=== PATIENT | female | born 1960 ===

== ENCOUNTER 2018-07-08 01:57 | Inpatient (IN) ==
[2018-07-08] MEDS ORDERED: Acetaminophen 325 MG Tablet PO PRN (04:29)
[2018-07-08] MEDS ORDERED: Aluminum/Magnesium/Simethacone Susp 30 ML UDC PO PRN (04:30)
[2018-07-08] MEDS ORDERED: Haloperidol Inj 5 MG/ML Ampul IV.PUSH PRN (10:37)
[2018-07-08] MEDS: LORazepam 1 MG Tablet PO PRN ×3 (11:09→22:18)
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
--- NOTE | 2018-07-08 18:27 | P.CONIM ---
History of Present Illness Service: [facility] Consult date: 07/08/18 Reason for Consult: Medical management Primary Care Provider: UNKNOWN Chief Complaint: right sided abdominal pain History of Present Illness: Patient is a 57-year-old woman, with a past medical history significant for hep C, history of MRSA, partial thyroidectomy, history of incarcerations, with a past psychiatric history of depression, multiple psychiatric admissions, one previous suicide attempt years ago, who presented to the ED after walking and stated she was tired of living in the context of recent cocaine intoxication and endorsing suicide ideation which patient was admitted to the inpatient psychiatry unit for further evaluation and management. From the report, it was noted that patient had been drinking all the time referring to alcohol use, having disturbed sleep, decreased energy with no change in appetite and concentration but reports feeling depressed along with paranoid ideation and suicidal ideation recently. Patient states that she had walked into the ER in [place] and was transferred here to this facility. Patient was admitted in psychiatric unit for evaluation and treatment. Medicine team was consulted for medical management. Patient seen and examined laying in bed, complaining of right-sided upper abdominal pain, worse on palpation.. Patient denies any association of nausea or vomiting. Patient denies any fever or chills, patient denies any diarrhea or constipation. Patient admitted drinking a lot every day, and stated sometimes smoking. Patient denies any use of IV drugs for a few months now. Review of Systems All other systems reviewed negative except as stated in [facility] PMFSH - History History Provided By: Patient, Medical Record - Medical History Medical History: Medical History (Last Updated 07/08/18 @ 18:25 by JIN Latham) Depression Hepatitis C History of incarceration MRSA (methicillin resistant Staphylococcus aureus) Suicidal ideation - Surgical History Surgical History: Surgical History (Last Reviewed 07/08/18 @ 18:25 by JIN Latham) H/O partial thyroidectomy - Family History Family History: Family History (Last Updated 07/08/18 @ 18:25 by JIN Latham) Other Family history unknown - Social History I have reviewed the patient's Social History: Yes - Tobacco History Second Hand Smoke Exposure: Yes Tobacco Use In Past 30 Days: Yes Smoking Status: Current every day smoker Tobacco Type: Cigarettes - Alcohol History How Often Do You Have a Drink Containing Alcohol: 4 or more times a week - Substance Use History Substance History: Active Abuse - Substance Use Type Alcohol Status: Active Route Used: By Mouth Frequency: 1-2 pints daily Reason for Use: Calm Down Comment: Patient stated she has been using ETOH "a long time". Per labratory documentation , Patient was positive for Cocaine and per ED report has history of IV drug use. Medications and Allergies Active Medications: Active Medications Acetaminophen (Tylenol) 650 mg PO Q4H PRN PRN Reason: PAIN 1-5/ TEMP> 101 Al Hydrox/Mg Hydrox/Simethicone (Mag-Al Plus Susp Liq) 30 ml PO Q6H PRN PRN Reason: DYSPEPSIA Al Hydroxide/Mg Hydroxide (Milk Of Magnesia Liq) 30 ml PO Q24H PRN PRN Reason: CONSTIPATION Clonidine HCl (Catapres) 0.1 mg PO BID [facility] Last Admin: 07/08/18 08:36 Dose: 0.1 mg Diphenhydramine HCl (Benadryl) 50 mg PO HS PRN PRN Reason: INSOMNIA Diphenhydramine HCl (Benadryl Inj) 50 mg IM HS PRN PRN Reason: INSOMNIA Duloxetine HCl (Cymbalta) 30 mg PO DAILY [facility] Last Admin: 07/08/18 11:09 Dose: 30 mg Flumazenil (Romazecon Inj) 0.2 mg IV.PUSH Q1M PRN PRN Reason: OVERSEDATION Haloperidol Lactate (Haldol Inj) 1 mg IV.PUSH Q15M PRN PRN Reason: for severe agitation Hydroxyzine HCl (Atarax) 50 mg PO Q6H PRN PRN Reason: ANXIETY Lorazepam (Ativan) 1 mg PO Q4H PRN PRN Reason: for CIWA 8-10 Last Admin: 07/08/18 16:13 Dose: 1 mg Lorazepam (Ativan) 2 mg PO Q2H PRN PRN Reason: for CIWA 11-14 Lorazepam (Ativan Inj) 2 mg IV.PUSH Q2H PRN PRN Reason: for CIWA 11-14 Lorazepam (Ativan Inj) 2 mg IV.PUSH Q1H PRN PRN Reason: for CIWA 15-20 Lorazepam (Ativan Inj) 2 mg IV.PUSH Q15M PRN PRN Reason: for CIWA > 20 Lorazepam (Ativan Inj) 1 mg IV.PUSH Q4H PRN PRN Reason: for CIWA 8-10 Miscellaneous Information ([facility] Information) 0 each OTHER HS GANESH Nicotine (Habitrol 21 Mg Patch.24 Hr) 1 patch T-DERMAL DAILY [facility] Last Admin: 07/08/18 09:28 Dose: Not Given Allergies Allergy/AdvReac Type Severity Reaction Status Date / Time haloperidol [From Haldol] Allergy Severe muscle Verified 07/08/18 04:28 rigidity Penicillins Allergy Severe Swelling Verified 07/08/18 04:28 of Lip/Tongue/Throat Sulfa (Sulfonamide Allergy Severe Swelling Verified 07/08/18 04:28 Antibiotics) of Lip/Tongue/Throat Home Medications Medication Instructions Recorded Confirmed Type clonidine HCl 0.1 mg PO BID 07/08/18 07/08/18 History duloxetine [Cymbalta] 30 mg PO DAILY 07/08/18 07/08/18 History Exam Vital signs: Vital Signs 07/08/18 04:28 Temperature 97.9 F Pulse Rate 63 Respiratory Rate 17 Blood Pressure 143/82 H Pulse Oximetry 98 Intake & Output 07/07/18 07/08/18 07/08/18 18:59 06:59 18:59 Weight 84.4 kg Other: Weight On Admission 84.4 kg Narrative: GENERAL: Well-developed, well-nourished, obese female, alert and oriented x3 in no apparent distress SKIN: Warm and dry. HEAD: Atraumatic. Normocephalic. EYES: Pupils equal and round. No scleral icterus. No injection or drainage. ENT: No nasal bleeding or discharge. Mucous membranes pink and moist. NECK: Trachea midline. No JVD. CARDIOVASCULAR: Regular rate and rhythm. RESPIRATORY: No accessory muscle use. Clear to auscultation. Breath sounds equal bilaterally. GASTROINTESTINAL: Abdomen obese soft, slight right upper abdominal tenderness, nondistended. Hepatic margins palpable and splenic margins not palpable. MUSCULOSKELETAL: Extremities without clubbing, cyanosis, or edema. No obvious deformities. NEUROLOGICAL: Awake and alert. No obvious cranial nerve deficits. Motor grossly within normal limits. Five out of 5 muscle strength in the arms and legs. Normal speech. PSYCHIATRIC: Appropriate mood and affect; insight and judgment unreliable. Assessment and Plan - Assessment (1) Hepatitis C Code(s): B19.20 - Unspecified viral hepatitis C without hepatic coma Status: Acute (2) MRSA (methicillin resistant staph aureus) culture positive Code(s): Z22.322 - Carrier or suspected carrier of Methicillin resistant Staphylococcus aureus Status: Acute (3) GERD (gastroesophageal reflux disease) Code(s): K21.9 - Gastro-esophageal reflux disease without esophagitis Status: Acute (4) Adjustment disorder with depressed mood Code(s): F43.21 - Adjustment disorder with depressed mood Status: Acute - Plan Patient is a 57-year-old woman, with a past medical history significant for hep C, history of MRSA, partial thyroidectomy, history of incarcerations, with a past psychiatric history of depression, multiple psychiatric admissions, one previous suicide attempt years ago, who presented to the ED after walking and stated she was tired of living in the context of recent cocaine intoxication and endorsing suicide ideation which patient was admitted to the inpatient psychiatry unit for further evaluation and management. Abdominal pain/ hx Hepatitis C Unspecified viral hepatitis C without hepatic coma -right upper abdominal pain -check liver function profile, CBC, BMP HX MRSA (methicillin resistant staph aureus) culture positive Carrier or suspected carrier of Methicillin resistant Staphylococcus aureus -no current signs and symptoms of infection GERD (gastroesophageal reflux disease) Gastro-esophageal reflux disease without esophagitis, Acute -start on ppi -monitor signs and symptoms Hx Partial Thyroidectomy -monitor tsh, free T4 -monitor signs and symptoms Adjustment disorder with depressed mood Adjustment disorder with depressed mood, acute -Management by Psychiatric Team Alcohol dependence/Alcohol use Disorder -CIWA protocol -counseling given -continue ativan -monitor for withdrawal symptoms DVT Proph: Patient ambulatory Code Status: full code Discussed Condition With: patient and nurse
[2018-07-08] MEDS: REMOVE OTHER SCH (22:09)
[2018-07-09] MEDS: LORazepam 1 MG Tablet PO PRN ×3 (08:41→21:23)
[2018-07-09 09:53] LABS: Baso % (Auto) 0.3 % (0.0-2.0); Eos # (Auto) 0.1 th/mm3 (0.0-0.4); Eos % (Auto) 1.6 % (0.0-4.0); Hematocrit 44.8 % (35.0-46.0); Hemoglobin 14.6 gm/dL (11.6-15.3); Lymph # (Auto) 0.9 th/mm3 (1.0-4.8); Lymph % (Auto) 24.7 % (9.0-44.0); Mean Corpuscular HGB Conc 32.7 % (32.0-36.0); Mean Corpuscular Hemoglobin 35.9 pg (27.0-34.0); Mean Corpuscular Volume 109.9 fL (80.0-100.0); Mean Platelet Volume 7.8 fL (7.0-11.0); Mono # (Auto) 0.2 th/mm3 (0.0-0.9); Neut # (Auto) 2.3 th/mm3 (1.8-7.7); Neut % (Auto) 66.4 % (16.0-70.0); Platelet Count 119 th/mm3 (150-450); Red Blood Count 4.08 mil/mm3 (4.00-5.30); Red Cell Distribution Width 14.2 % (11.6-17.2); White Blood Count 3.5 th/mm3 (4.0-11.0)
[2018-07-09 10:03] LABS: Albumin 2.8 g/dL (3.4-5.0); Anion Gap 8 meq/L (5-15); Aspartate Aminotransferase 22 U/L (15-37); Blood Urea Nitrogen 16 mg/dL (7-18); Calcium 8.9 mg/dL (8.5-10.1); Carbon Dioxide 21.5 meq/L (21.0-32.0); Chloride 107 meq/L (98-107); Glomerular Filtration Rate 85 mL/min (>89); Glucose,Random 76 mg/dL (74-106); Potassium 4.4 meq/L (3.5-5.1); Sodium 136 meq/L (136-145)
[2018-07-09 10:11] LABS: Alanine Aminotransferase 21 U/L (10-53); Alkaline Phosphatase 126 U/L (45-117); Free T4 (Free Thyroxine) 0.99 ng/dL (0.76-1.46); Total Protein 7.2 g/dL (6.4-8.2)
--- NOTE | 2018-07-09 15:35 | P.PNPSY ---
Subjective Remarks: Reviewed electronic medical records and discussed case with staff. Follow-up was conducted in the dayroom with nurse present.Patient endorses that she is feeling better and that she is shaking less. CHRISTOS was at 8 today. She feels that she is sleeping alot. She is complaining to right sided pain that is chronic and requesting tylenol. He states she stills feels sad, but that it getting better. Denies any suicidal ideations. Review of Systems All other systems reviewed negative except as stated in HPI Mental Status Examination Appearance: Dirty, Disheveled Consciousness: Alert Orientation: Person, Place, Date/Time Motor Activity: Normal gait Speech: Unremarkable Language: Adequate Fund of Knowledge: Inadequate Attention and Concentration: Adequate Memory: Impaired Affect: Labile Thought Process & Associations: Disorganized (At times) Thought Content: Preoccupations (Wanting rehabilitation program) Hallucination Type: None Delusion Type: None Suicidal Ideation: No Suicidal Plan: No Suicidal Intention: No Homicidal Ideation: No Homicidal Plan: No Homicidal Intention: No Insight: Fair Judgment: Impulsive Assessment and Plan - Assessment (1) Adjustment disorder with depressed mood Code(s): F43.21 - Adjustment disorder with depressed mood Status: Acute - Plan Plan: Estimated LOS: [] days Continue current treatment plan, Patient will be seen by psychiatrist on Tuesday. . Justification for Continued Inpatient Stay: Moving patient to a less restrictive environment may result in her decompensation.
[2018-07-09 16:00] LABS: Bilirubin,Urine Negative (Negative); Clarity,Urine Clear (Clear); Color,Urine Straw (Yellw/Straw); Glucose,Urine (UA) Negative (Negative); Leukocyte Esterase,Urine Negative (Negative); Nitrite,Urine Negative (Negative); Specific Gravity,Urine 1.008 (1.002-1.035)
--- NOTE | 2018-07-09 17:37 | P.PNIM ---
Subjective Interval history: Patient is a 57-year-old woman, with a past medical history significant for hep C, history of MRSA, partial thyroidectomy, history of incarcerations. Patient seen and examined, lying in bed, complaints of pain on right abdomen, patient stated she had offered a liver transplant when she was younger, but she refuses. Patient stated she started to be a drinker since 10 years old. Patient denies any nausea or vomiting, denies any headache or dizziness, denies any fever or chills. Physical Exam Vital signs: Vital Signs 07/09/18 06:01 07/09/18 17:31 Temperature 97.8 F 98.1 F Pulse Rate 68 62 Respiratory Rate 16 18 Blood Pressure 117/69 107/60 Pulse Oximetry 97 93 L Narrative: GENERAL: Well-developed, well-nourished, obese female, alert and oriented x3 in no apparent distress SKIN: Warm and dry. HEAD: Atraumatic. Normocephalic. EYES: Pupils equal and round. No scleral icterus. No injection or drainage. ENT: No nasal bleeding or discharge. Mucous membranes pink and moist. NECK: Trachea midline. No JVD. CARDIOVASCULAR: Regular rate and rhythm. RESPIRATORY: No accessory muscle use. Clear to auscultation. Breath sounds equal bilaterally. GASTROINTESTINAL: Abdomen obese soft, slight right upper abdominal tenderness, nondistended. Hepatic margins palpable and splenic margins not palpable. MUSCULOSKELETAL: Extremities without clubbing, cyanosis, or edema. No obvious deformities. NEUROLOGICAL: Awake and alert. No obvious cranial nerve deficits. Motor grossly within normal limits. Five out of 5 muscle strength in the arms and legs. Normal speech. PSYCHIATRIC: Appropriate mood and affect; insight and judgment unreliable. Results - Labs CBC & Chem 7: 07/09/18 09:00 07/09/18 09:00 Laboratory Results - last 24 hr 07/09/18 07/09/18 07/09/18 09:00 09:00 13:35 WBC 3.5 L RBC 4.08 Hgb 14.6 Hct 44.8 MCV 109.9 H MCH 35.9 H MCHC 32.7 RDW 14.2 Plt Count 119 L MPV 7.8 Neut % (Auto) 66.4 Lymph % (Auto) 24.7 [place] % (Auto) 7.0 Eos % (Auto) 1.6 Baso % (Auto) 0.3 Neut # (Auto) 2.3 Lymph # (Auto) 0.9 L [place] # (Auto) 0.2 Eos # (Auto) 0.1 Baso # (Auto) 0.0 WBC Differential . Differential Comment Auto diff final Sodium 136 Potassium 4.4 Chloride 107 Carbon Dioxide 21.5 Anion Gap 8 BUN 16 Creatinine 0.71 Estimated GFR 85 L Random Glucose 76 Calcium 8.9 Total Bilirubin 0.3 AST 22 ALT 21 Alkaline Phosphatase 126 H Total Protein 7.2 Albumin 2.8 L TSH 0.610 Free T4 0.99 Urine Color Straw Urine Clarity Clear Urine pH 7.0 Ur Specific Hood 1.008 Urine Protein Negative Urine Glucose (UA) Negative Urine Ketones Negative Urine Occult Blood Negative Urine Nitrate Negative Urine Bilirubin Negative Urine Urobilinogen Less than 2 Ur Leukocyte Esterase Negative Urine RBC Less than 1 Urine WBC 1 Micro UA Comment Culture not ind Ur Microscopic Review Not Reportable Urine Culture Comments Culture not ind Assessment and Plan - Assessment (1) Hepatitis C Code(s): B19.20 - Unspecified viral hepatitis C without hepatic coma Status: Acute (2) MRSA (methicillin resistant staph aureus) culture positive Code(s): Z22.322 - Carrier or suspected carrier of Methicillin resistant Staphylococcus aureus Status: Acute (3) GERD (gastroesophageal reflux disease) Code(s): K21.9 - Gastro-esophageal reflux disease without esophagitis Status: Acute (4) Adjustment disorder with depressed mood Code(s): F43.21 - Adjustment disorder with depressed mood Status: Acute - Plan Patient is a 57-year-old woman, with a past medical history significant for hep C, history of MRSA, partial thyroidectomy, history of incarcerations, with a past psychiatric history of depression, multiple psychiatric admissions, one previous suicide attempt years ago, who presented to the ED after walking and stated she was tired of living in the context of recent cocaine intoxication and endorsing suicide ideation which patient was admitted to the inpatient psychiatry unit for further evaluation and management. Abdominal pain/ hx Hepatitis C Unspecified viral hepatitis C without hepatic coma -right upper abdominal pain -alkaline Phosphatase elevated -check CK, INR -prn pain medication HX MRSA (methicillin resistant staph aureus) culture positive Carrier or suspected carrier of Methicillin resistant Staphylococcus aureus -no current signs and symptoms of infection GERD (gastroesophageal reflux disease) Gastro-esophageal reflux disease without esophagitis, Acute -start on ppi -monitor signs and symptoms Hx Partial Thyroidectomy -monitor tsh, free T4 -monitor signs and symptoms Adjustment disorder with depressed mood Adjustment disorder with depressed mood, acute -Management by Psychiatric Team Alcohol dependence/Alcohol use Disorder -CIWA protocol -counseling given -continue ativan -monitor for withdrawal symptoms DVT Proph: Patient ambulatory Code Status: full code Discussed Condition With: patient and nurse
[2018-07-10] MEDS: REMOVE OTHER SCH (01:09)
[2018-07-10] MEDS: LORazepam 1 MG Tablet PO PRN ×2 (04:52→09:39)
[2018-07-10 08:48] LABS: Baso % (Auto) 0.3 % (0.0-2.0); Eos # (Auto) 0.1 th/mm3 (0.0-0.4); Eos % (Auto) 1.8 % (0.0-4.0); Hematocrit 44.6 % (35.0-46.0); Hemoglobin 15.1 gm/dL (11.6-15.3); Lymph # (Auto) 1.3 th/mm3 (1.0-4.8); Lymph % (Auto) 32.4 % (9.0-44.0); Mean Corpuscular Hemoglobin 36.4 pg (27.0-34.0); Mean Platelet Volume 7.4 fL (7.0-11.0); Mono # (Auto) 0.2 th/mm3 (0.0-0.9); Mono % (Auto) 5.4 % (0.0-8.0); Neut # (Auto) 2.5 th/mm3 (1.8-7.7); Neut % (Auto) 60.1 % (16.0-70.0); Platelet Count 138 th/mm3 (150-450); Red Blood Count 4.17 mil/mm3 (4.00-5.30); White Blood Count 4.1 th/mm3 (4.0-11.0)
[2018-07-10 09:16] LABS: Calcium 9.1 mg/dL (8.5-10.1); Carbon Dioxide 24.9 meq/L (21.0-32.0)
[2018-07-10] MEDS ORDERED: LORazepam 1 MG Tablet PO PRN (13:37)
--- NOTE | 2018-07-10 13:43 | P.PNPSY ---
Subjective Remarks: Patient seen in her room with nurse Montague and medical student at [facility], chart reviewed, patient compliant medications. Patient has been given 1 mg Ativan 3 x / 3 times on 07/09 twice on 07/10. Considering patient's significant drug abuse history I will adjust the [facility] protocol. I will discontinue all the 2 mg Ativan orders. We will extend the 1 mg p.o. order to every 6 hours from every 4 hours. Patient denied suicidality at this time but is vague about the possibility of an attempt sometime in the future. She seems to be wanting to find a long-term inpatient rehab program. It appears she is failed multiple times in the past he has been a traveler across the country in various cities. Along with the long-term addictions to multiple drugs. She states she is also had 7 incarcerations while in [place]. And just recently arrived here after taking a bus from [place] to [place] with trying to stand for it and then here. She is unable to give a good reason why she was using cocaine this recently. We did discuss options with her including sober living facilities perhaps [facility] in [place]. I did talk to him counselor Scott who will pass these information on to the patient. Otherwise for now continue treatment Review of Systems All other systems reviewed negative except as stated in HPI Mental Status Examination Appearance: Appropriate, Disheveled Consciousness: Alert Orientation: Person, Place, Date/Time Motor Activity: Normal gait Speech: Unremarkable Language: Adequate Fund of Knowledge: Adequate Attention and Concentration: Adequate Memory: Impaired Mood: Other (Euthymic to somewhat restricted) Affect: Other (Slight decreased range and intensity) Thought Process & Associations: Disorganized (At times) Thought Content: Preoccupations (Wanting rehabilitation program) Hallucination Type: None Delusion Type: None Suicidal Ideation: No Suicidal Plan: No Suicidal Intention: No Homicidal Ideation: No Homicidal Plan: No Homicidal Intention: No Insight: Fair Judgment: Impulsive Assessment and Plan - Assessment (1) Adjustment disorder with depressed mood Code(s): F43.21 - Adjustment disorder with depressed mood Status: Acute - Plan Plan: Patient remains somewhat depressed but also there is a degree of manipulation noted considering her wandering the country and her homelessness. She did say she wanted to rehab program she knows this is not available this easily and [facility] though she is willing now to work with the sober living solution Justification for Continued Inpatient Stay: I have tapered down the Discharge Planning: To be determined Request Healthcare Surrogate/Guardian Advocate?: No
--- NOTE | 2018-07-10 16:49 | P.PN ---
Subjective Interval history: Follow-up for medical management, history hep C, right upper quadrant pain. Patient seen and examined, patient crying. She is feeling down. Complains of right upper quadrant pain, indicates that this has been ongoing for several months, has had a workup before. States pain is 8. Occasionally the pain is mid abdomen, has prior history of umbilical hernia. History hep C, was treated with Harvoni. Has not had follow-up 2014. Continues to drink alcohol. Has history of EGD and colonoscopy 1 year ago, was found with polyps, hiatal hernia. Was taking Protonix. Has occasional heartburn. Has been feeling nauseous, poor appetite. Prior history of cholecystectomy. Physical Exam Vital signs: Vital Signs 07/09/18 17:31 07/10/18 05:46 07/10/18 08:45 Temperature 98.1 F 98.1 F 98.4 F Pulse Rate 62 53 L 66 Respiratory Rate 18 16 17 Blood Pressure 107/60 108/60 123/66 Pulse Oximetry 93 L 96 97 Narrative: GENERAL: Well-developed, well-nourished, obese female, crying. SKIN: Warm and dry. HEAD: Atraumatic. Normocephalic. EYES: Pupils equal and round. No scleral icterus. No injection or drainage. ENT: No nasal bleeding or discharge. Mucous membranes pink and moist. NECK: Trachea midline. No JVD. CARDIOVASCULAR: Regular rate and rhythm. RESPIRATORY: No accessory muscle use. Clear to auscultation. Breath sounds equal bilaterally. GASTROINTESTINAL: Abdomen obese soft, right upper abdominal tenderness, nondistended. Hepatic margins palpable and splenic margins not palpable. MUSCULOSKELETAL: Extremities without clubbing, cyanosis, or edema. No obvious deformities. NEUROLOGICAL: Awake and alert. No obvious cranial nerve deficits. Motor grossly within normal limits. Five out of 5 muscle strength in the arms and legs. Normal speech. PSYCHIATRIC: Tearful. Results - Labs CBC & Chem 7: 07/10/18 08:07 07/10/18 08:07 Laboratory Results - last 24 hr 07/10/18 07/10/18 07/10/18 08:07 08:07 08:07 WBC 4.1 RBC 4.17 Hgb 15.1 Hct 44.6 MCV 107.0 H MCH 36.4 H MCHC 34.0 RDW 14.0 Plt Count 138 L MPV 7.4 Neut % (Auto) 60.1 Lymph % (Auto) 32.4 [place] % (Auto) 5.4 Eos % (Auto) 1.8 Baso % (Auto) 0.3 Neut # (Auto) 2.5 Lymph # (Auto) 1.3 [place] # (Auto) 0.2 Eos # (Auto) 0.1 Baso # (Auto) 0.0 WBC Differential . Differential Comment Auto diff final PT 10.0 INR 1.0 Sodium 139 Potassium 4.0 Chloride 104 Carbon Dioxide 24.9 Anion Gap 10 BUN 17 Creatinine 0.77 Estimated GFR 78 L Random Glucose 95 Calcium 9.1 Assessment and Plan - Assessment (1) Hepatitis C Code(s): B19.20 - Unspecified viral hepatitis C without hepatic coma Status: Acute (2) MRSA (methicillin resistant staph aureus) culture positive Code(s): Z22.322 - Carrier or suspected carrier of Methicillin resistant Staphylococcus aureus Status: Acute (3) GERD (gastroesophageal reflux disease) Code(s): K21.9 - Gastro-esophageal reflux disease without esophagitis Status: Acute (4) Adjustment disorder with depressed mood Code(s): F43.21 - Adjustment disorder with depressed mood Status: Acute - Plan - Plan Patient is a 57-year-old woman, with a past medical history significant for hep C, history of MRSA, partial thyroidectomy, history of incarcerations, with a past psychiatric history of depression, multiple psychiatric admissions, one previous suicide attempt years ago, who presented to the ED after walking and stated she was tired of living in the context of recent cocaine intoxication and endorsing suicide ideation which patient was admitted to the inpatient psychiatry unit for further evaluation and management. Right upper quadrant pain History of hepatitis C, treated with Harvoni Hx of cholecystectomy -alkaline Phosphatase elevated, AST, ALT normal. INR okay. No coagulopathy Can have Tylenol 650 every 8 as needed. -We will check liver ultrasound -CPK pending GERD History of hiatal hernia -Protonix 40 mg p.o. History of MRSA, not active. No signs and symptoms of infection Continue to monitor History of partial thyroidectomy -monitor tsh, free T4 -monitor signs and symptoms Alcohol dependence [facility] protocol -counseling given -continue ativan -monitor for withdrawal symptoms -Add folic acid and thiamine Adjustment disorder with depressed mood Management by Psychiatric Team Tobacco abuse -Nicotine patch -Counseling done DVT Proph: Patient ambulatory Code Status: Full code Discussed Condition With: RN, pt. Discharge Planning: Per primary care team.
--- NOTE | 2018-07-10 18:58 | US ---
EXAM DATE: 07/10/2018 12:00 AM EDT AGE/SEX: 57 years / Female INDICATIONS: Abdominal pain. CLINICAL DATA: This is the patient's initial encounter. Patient reports that signs and symptoms have been present for 1 day and indicates a pain score of 2/10. MEDICAL/SURGICAL HISTORY: Hepatitis C. Depression. MRSA. Suicidal ideation. . Partial thyroide ctomy. COMPARISON: No prior exams available for comparison. MEASUREMENTS: Liver:__ 15.2 cm. Common Bile Duct:__ 1mm. Right Kidney:__ 10.7 x 5.3 x 4.5 cm. FINDINGS: Liver: Normal echotexture without focal lesion or ductal dilatation. Portal Vein: Hepatopedal flow seen in portal vein. Common Duct: No intraluminal mass or stone visualized. Gallbladder: Surgically absent. Pancreas: The visualized portions are within normal limits Right Kidney: Normal echotexture and cortical thickness. No mass or hydronephrosis. Other: None. CONCLUSION: 1. Negative abdominal sonogram. Cholecystectomy. Electronically signed by: Jason Dalton MD 07/10/2018 6:57 PM EDT
[2018-07-11] MEDS: REMOVE OTHER SCH ×2 (07:24→22:31)
[2018-07-11] MEDS: Acetaminophen 325 MG Tablet PO PRN (10:03)
[2018-07-11] MEDS: Folic Acid 1 MG Tablet PO SCH (10:04)
--- NOTE | 2018-07-11 13:32 | P.PNPSY ---
Subjective Remarks: Patient seen in her room with nurse, chart reviewed, patient compliant medications. Patient appears more alert focused today though also somewhat more manipulating. Attempted to discuss discharge plans and placement options with her she basically refused to consider an SENIOR CARE. States she has had poor results with sober living in half-way-type situations. She stated she would like to go to an inpatient rehab program. But those are not availablle on her short notice. She also states she has been in various rehabs across the country. She is vague about any suicidality voices or visions at this time. There appears to be an increased component of manipulation with this lady. We will give her our list of sober living facilities and shelters for her to attempt to find placement otherwise consider discharge within 48 hours Review of Systems All other systems reviewed negative except as stated in HPI Mental Status Examination Appearance: Appropriate, Disheveled Consciousness: Alert Orientation: Person, Place, Date/Time Motor Activity: Normal gait Speech: Unremarkable Language: Adequate Fund of Knowledge: Adequate Attention and Concentration: Adequate Memory: Impaired Mood: Other (Euthymic to somewhat restricted) Affect: Other (Slight decreased range and intensity) Thought Process & Associations: Disorganized (Improving) Thought Content: Preoccupations (Wanting rehabilitation program) Hallucination Type: None Delusion Type: None Suicidal Ideation: No Suicidal Plan: No Suicidal Intention: No Homicidal Ideation: No Homicidal Plan: No Homicidal Intention: No Insight: Fair Judgment: Impulsive Assessment and Plan - Assessment (1) Adjustment disorder with depressed mood Code(s): F43.21 - Adjustment disorder with depressed mood Status: Acute - Plan Plan: Patient is showing improvement in her focus though also appears to be some increased manifestations of perhaps a personality disorder issues. We will give patient information related to his sober living facilities and homeless resources consider discharge in 1-2 days Justification for Continued Inpatient Stay: At this time patient would decompensate a place to a lower level of care Discharge Planning: To be determined Request Healthcare Surrogate/Guardian Advocate?: No
--- NOTE | 2018-07-11 16:39 | P.PN ---
Subjective Interval history: Follow-up of patient with hep C, abdominal pain. Patient seen and examined. Patient states she continues to have constant right upper quadrant abdominal pain that is worse immediately after eating. She has a history of hep C and was previously treated with Harvoni. She denies any chest pain or shortness of breath. She denies any fever or chills. She had an EGD and colonoscopy a year ago and was told she had polyps and a hiatal hernia. She complains of nausea but no vomiting. His previous history of cholecystectomy. She denies any diarrhea or constipation. Physical Exam Vital signs: Vital Signs 07/10/18 17:44 07/11/18 06:00 Temperature 98.6 F 98.4 F Pulse Rate 85 65 Respiratory Rate 17 17 Blood Pressure 127/75 121/62 Pulse Oximetry 96 Narrative: GENERAL: Well-developed, well-nourished, obese female, INAD. Awake and alert. SKIN: Warm and dry. HEENT: Atraumatic. Normocephalic. Pupils equal and round. No scleral icterus. No injection or drainage. No nasal bleeding or discharge. Mucous membranes pink and moist. NECK: Trachea midline. CARDIOVASCULAR: Regular rate and rhythm. RESPIRATORY: No accessory muscle use. Clear to auscultation. Breath sounds equal bilaterally. GASTROINTESTINAL: Abdomen obese soft, right upper abdominal tenderness, nondistended. Hepatic margins palpable and splenic margins not palpable. MUSCULOSKELETAL: Extremities without clubbing, cyanosis, or edema. No obvious deformities. NEUROLOGICAL: Awake and alert. No obvious cranial nerve deficits. Motor grossly within normal limits. Nonfocal. Normal speech. PSYCHIATRIC: Calm and cooperative Results - Labs CBC & Chem 7: 07/10/18 08:07 07/10/18 08:07 - Imaging Impressions Liver Ultrasound 07/10/18 00:00 CONCLUSION: 1. Negative abdominal sonogram. Cholecystectomy. Assessment and Plan - Assessment (1) Hepatitis C Code(s): B19.20 - Unspecified viral hepatitis C without hepatic coma Status: Acute (2) MRSA (methicillin resistant staph aureus) culture positive Code(s): Z22.322 - Carrier or suspected carrier of Methicillin resistant Staphylococcus aureus Status: Acute (3) GERD (gastroesophageal reflux disease) Code(s): K21.9 - Gastro-esophageal reflux disease without esophagitis Status: Acute (4) Adjustment disorder with depressed mood Code(s): F43.21 - Adjustment disorder with depressed mood Status: Acute - Plan 57-year-old woman, with a past medical history significant for hep C, history of MRSA, partial thyroidectomy, history of incarcerations, with a past psychiatric history of depression, multiple psychiatric admissions, one previous suicide attempt years ago, who presented to the ED after walking and stated she was tired of living in the context of recent cocaine intoxication and endorsing suicide ideation which patient was admitted to the inpatient psychiatry unit for further evaluation and management. Right upper quadrant pain, constant, worse after meals History of hepatitis C, treated with Harvoni Hx of cholecystectomy GERD History of hiatal hernia abd US neg -Consult GI, appreciate assistance -Protonix 40 mg p.o. -trial of Bentyl -monitor History of MRSA, not active. No signs and symptoms of infection Continue to monitor History of partial thyroidectomy -thyroid studies WNL Alcohol dependence [facility] protocol -counseling given -continue ativan -monitor for withdrawal symptoms -Continue thiamine and folic acid daily Adjustment disorder with depressed mood Management by Psychiatric Team Tobacco abuse -Nicotine patch -Counseling done DVT prophylaxis -Patient is ambulatory Code Status: Full Discussed Condition With: patient, nursing staff
[2018-07-11] MEDS: Dicyclomine 10 MG Capsule PO PRN (17:50)
[2018-07-12] MEDS: Acetaminophen 325 MG Tablet PO PRN (08:11)
[2018-07-12] MEDS: Folic Acid 1 MG Tablet PO SCH (08:11)
[2018-07-12] MEDS: Dicyclomine 10 MG Capsule PO PRN (08:12)
--- NOTE | 2018-07-12 08:21 | P.CONGI ---
History of Present Illness Consult date: 07/12/18 Consult reason: Abdominal pain Chief complaint: depressive disorder History of Present Illness: This is a 57-year-old female with past medical history significant for hepatitis C from history of IV drug use status post successful treatment with Harvoni in 2014, history of MRSA, partial thyroidectomy who is currently admitted to the inpatient psychiatric unit for reports of suicidal ideation. Her service has been consulted to evaluate patient for complaints of abdominal pain. Patient reports that she has been having right upper quadrant pain for the past year, states that pain is constant throughout the day but worse after meals, unable to describe the feeling of the pain. Reports associated nausea when the pain is so severe, also reports occasional emesis. Denies any hematemesis or coffee-ground emesis. Patient reports taking a significant amount of ibuprofen to help with the abdominal pain. Also drinks from 1-2 pints of whiskey daily. Patient is also complaining of a pain in her lower abdomen, states intermittent, unsure of any aggravating or relieving factors. States that it feels like there is something inside of her rolling up under her. Denies any changes in her bowel habits. Denies any hematochezia or melena. Denies any recent unintentional weight loss. Patient reports that she had an endoscopy and colonoscopy done a year ago with findings of one polyp and hiatal hernia. <Constance Rosales - Last Filed: 07/12/18 08:10> Review of Systems Gastrointestinal: Reports abdominal pain, Reports nausea, Reports vomiting, Denies black, tarry stools, Denies bright, red blood in stools, Denies change in bowel habits, Denies coffee ground vomit, Denies incontinent of stools <Constance Rosales - Last Filed: 07/12/18 08:10> PMFSH - History History Provided By: Patient, Medical Record - Medical History Medical History: Medical History (Last Updated 07/08/18 @ 18:25 by JIN Latham) Depression Hepatitis C History of incarceration MRSA (methicillin resistant Staphylococcus aureus) Suicidal ideation - Surgical History Surgical History: Surgical History (Last Reviewed 07/08/18 @ 18:25 by JIN Latham) H/O partial thyroidectomy - Family History Family History: Family History (Last Updated 07/08/18 @ 18:25 by JIN Latham) Other Family history unknown - Tobacco History Second Hand Smoke Exposure: Yes Tobacco Use In Past 30 Days: Yes Smoking Status: Current every day smoker Tobacco Type: Cigarettes - Alcohol History How Often Do You Have a Drink Containing Alcohol: 4 or more times a week - Substance Use History Substance History: Active Abuse - Substance Use Type Alcohol Status: Active Route Used: By Mouth Frequency: 1-2 pints daily Reason for Use: Calm Down Comment: Patient stated she has been using ETOH "a long time". Per labratory documentation , Patient was positive for Cocaine and per ED report has history of IV drug use. <Constance Rosales - Last Filed: 07/12/18 08:10> - Medical History Medical History: Medical History (Last Updated 07/08/18 @ 18:25 by JIN Latham) Depression Hepatitis C History of incarceration MRSA (methicillin resistant Staphylococcus aureus) Suicidal ideation - Surgical History Surgical History: Surgical History (Last Reviewed 07/08/18 @ 18:25 by JIN Latham) H/O partial thyroidectomy - Family History Family History: Family History (Last Updated 07/08/18 @ 18:25 by JIN Latham) Other Family history unknown <Yovanny Magdaleno - Last Filed: 07/13/18 16:23> Medications and Allergies Active Medications: Active Medications Acetaminophen (Tylenol) 650 mg PO Q8H PRN PRN Reason: PAIN 1-5/ TEMP> 101 Last Admin: 07/11/18 10:03 Dose: 650 mg Al Hydrox/Mg Hydrox/Simethicone (Mag-Al Plus Susp Liq) 30 ml PO Q6H PRN PRN Reason: DYSPEPSIA Al Hydroxide/Mg Hydroxide (Milk Of Magnesia Liq) 30 ml PO Q24H PRN PRN Reason: CONSTIPATION Clonidine HCl (Catapres) 0.1 mg PO BID GANESH Last Admin: 07/11/18 21:04 Dose: 0.1 mg Dicyclomine HCl (Bentyl) 10 mg PO QID PRN PRN Reason: ABDOMINAL PAIN Last Admin: 07/11/18 17:50 Dose: 10 mg Diphenhydramine HCl (Benadryl) 50 mg PO HS PRN PRN Reason: INSOMNIA Last Admin: 07/10/18 21:21 Dose: 50 mg Duloxetine HCl (Cymbalta) 30 mg PO DAILY [facility] Last Admin: 07/11/18 10:04 Dose: 30 mg Flumazenil (Romazecon Inj) 0.2 mg IV.PUSH Q1M PRN PRN Reason: OVERSEDATION Folic Acid (Folic Acid) 1 mg PO DAILY [facility] Last Admin: 07/11/18 10:04 Dose: 1 mg Haloperidol Lactate (Haldol Inj) 1 mg IV.PUSH Q15M PRN PRN Reason: for severe agitation Hydroxyzine HCl (Atarax) 50 mg PO Q6H PRN PRN Reason: ANXIETY Last Admin: 07/11/18 17:50 Dose: 50 mg Lorazepam (Ativan Inj) 1 mg IV.PUSH Q4H PRN PRN Reason: for CIWA 8-10 Lorazepam (Ativan) 1 mg PO Q6H PRN PRN Reason: for CIWA 8-10 Miscellaneous Information ([facility]) 0 each OTHER HS [facility] Last Admin: 07/11/18 22:31 Dose: Not Given Nicotine (Habitrol 21 Mg Patch.24 Hr) 1 patch T-DERMAL DAILY [facility] Last Admin: 07/12/18 08:06 Dose: Not Given Ondansetron HCl (Zofran Odt) 4 mg PO Q4H PRN PRN Reason: NAUSEA OR VOMITING Pantoprazole Sodium (Protonix) 40 mg PO DAILY [facility] Last Admin: 07/11/18 10:04 Dose: 40 mg Thiamine HCl (Vitamin B1) 100 mg PO BID [facility] Last Admin: 07/11/18 21:04 Dose: 100 mg <Constance Rosales - Last Filed: 07/12/18 08:10> Active Medications: Active Medications Acetaminophen (Tylenol) 650 mg PO Q8H PRN PRN Reason: PAIN 1-5/ TEMP> 101 Last Admin: 07/13/18 10:09 Dose: 650 mg Al Hydrox/Mg Hydrox/Simethicone (Mag-Al Plus Susp Liq) 30 ml PO Q6H PRN PRN Reason: DYSPEPSIA Al Hydroxide/Mg Hydroxide (Milk Of Magnesia Liq) 30 ml PO Q24H PRN PRN Reason: CONSTIPATION Clonidine HCl (Catapres) 0.1 mg PO BID [facility] Last Admin: 07/13/18 15:24 Dose: 0.1 mg Dicyclomine HCl (Bentyl) 10 mg PO QID PRN PRN Reason: ABDOMINAL PAIN Last Admin: 07/12/18 08:12 Dose: 10 mg Diphenhydramine HCl (Benadryl) 50 mg PO HS PRN PRN Reason: INSOMNIA Last Admin: 07/12/18 21:22 Dose: 50 mg Duloxetine HCl (Cymbalta) 30 mg PO DAILY [facility] Last Admin: 07/13/18 10:09 Dose: 30 mg Folic Acid (Folic Acid) 1 mg PO DAILY [facility] Last Admin: 07/13/18 10:08 Dose: 1 mg Hydroxyzine HCl (Atarax) 50 mg PO Q6H PRN PRN Reason: ANXIETY Last Admin: 07/13/18 15:20 Dose: 50 mg Miscellaneous Information ([facility]) 0 each OTHER HS [facility] Last Admin: 07/12/18 21:21 Dose: Not Given Nicotine (Habitrol 21 Mg Patch.24 Hr) 1 patch T-DERMAL DAILY [facility] Last Admin: 07/13/18 10:39 Dose: Not Given Ondansetron HCl (Zofran Odt) 4 mg PO Q4H PRN PRN Reason: NAUSEA OR VOMITING Pantoprazole Sodium (Protonix) 40 mg PO DAILY [facility] Last Admin: 07/13/18 10:09 Dose: 40 mg Thiamine HCl (Vitamin B1) 100 mg PO BID [facility] Last Admin: 07/13/18 10:09 Dose: 100 mg <Yovanny Magdaleno - Last Filed: 07/13/18 16:23> Allergies Allergy/AdvReac Type Severity Reaction Status Date / Time haloperidol [From Haldol] Allergy Severe muscle Verified 07/08/18 04:28 rigidity Penicillins Allergy Severe Swelling Verified 07/08/18 04:28 of Lip/Tongue/Throat Sulfa (Sulfonamide Allergy Severe Swelling Verified 07/08/18 04:28 Antibiotics) of Lip/Tongue/Throat Home Medications Medication Instructions Recorded Confirmed Type clonidine HCl 0.1 mg PO BID 07/08/18 07/08/18 History duloxetine [Cymbalta] 30 mg PO DAILY 07/08/18 07/08/18 History Exam Vital signs: Vital Signs 07/11/18 17:27 07/12/18 05:52 Temperature 97.8 F 97.8 F Pulse Rate 63 56 L Respiratory Rate 16 17 Blood Pressure 119/63 113/65 Pulse Oximetry 96 96 - Constitutional no acute distress - Routine HEENT Exam Head: Present: normocephalic, atraumatic - Routine Respiratory Exam Absent: accessory muscle use - Routine Cardiovascular Exam Present: RRR - Routine Abdominal Exam Present: soft, normoactive bowel sounds, tenderness (mid lower abdomen and RUQ ) . Absent: distended - Routine Skin Exam Present: dry, warm - Routine Neurological Exam Present: alert, oriented X3 <Constance Rosales - Last Filed: 07/12/18 08:10> Vital signs: Vital Signs 07/12/18 18:00 07/13/18 05:19 07/13/18 09:46 Temperature 97.9 F 97.6 F 98.0 F Pulse Rate 68 58 L 57 L Respiratory Rate 17 16 16 Blood Pressure 149/82 H 106/61 109/55 L Pulse Oximetry 96 96 Intake & Output 07/12/18 07/13/18 07/13/18 18:59 06:59 18:59 Intake Total 960 / 960 200 / 200 Balance 960 / 960 200 / 200 Weight 83.7 kg Intake: Oral 960 / 960 Anesthesia Amount 200 / 200 <Yovanny Magdaleno - Last Filed: 07/13/18 16:23> Results - Labs CBC & Chem 7: 07/10/18 08:07 07/10/18 08:07 <Constance Rosales - Last Filed: 07/12/18 08:10> - Labs CBC & Chem 7: 07/10/18 08:07 07/10/18 08:07 Labs: Laboratory Results - last 24 hr 07/10/18 08:07 CK-MM (CK-3) % 100 CK-MB (CK-2) % 0 CK-BB (CK-1) % None detected CK and CKMB Interp ND - Imaging Impressions Abdomen/Pelvis CT 07/12/18 00:00 CONCLUSION: 1. No definite acute abnormality is seen. 2. Nonspecific mild distention of the stomach with debris. This can be correlated if this is related to the clinical symptoms. 3. Degenerative and postoperative change in the lower lumbar spine. <Yovanny Magdaleno - Last Filed: 07/13/18 16:23> Assessment and Plan - Plan Assessment Right upper quadrant abdominal painstates is been going on for the past year but increasing in intensity, constant throughout the day but worse after meals. Unable to describe the pain. Reports associated nausea when the pain is severe, occasional emesis. Denies hematemesis and coffee-ground emesis. Of note, patient reports she has been taking a lot of ibuprofen lately for the abdominal pain. Also drinks 1-2 pints of whiskey daily. Liver ultrasound (07/10)-post cholecystectomy. Negative abdominal sonogram Mid lower abdominal painstates been going on for the past month, intermittent. Describes it as a feeling of something inside of her rolling. Denies any changes in bowel habits. Denies any hematochezia or melena. Denies any recent unintentional weight loss. Patient reports having an EGD and colonoscopy done a year ago, findings of one colon polyp and hiatal hernia. Patient does report a narrowing in her colon multiple years ago and a colonoscopy but this is not recurred on previous exam. Does report family history significant for colon cancer, father. Hepatitis Cpatient reports history of hepatitis C from history of IV drug use status post successful treatment with Harvoni in 2014. Patient does report recent illicit drug use but states no IV use since treatment. EtOH abusepatient reports drinking 1-2 pints of whiskey daily. Suicidal ideation- Currently admitted to inpatient psych unit Plan CT abdomen pelvis with IV contrast EGD tomorrow Obtain consent N.p.o. after midnight Mendoza Advised on EtOH cessation Continue supportive care Further recommendations to follow This patient has been seen and examined by myself and Dr. Magdaleno this note was written on his behalf <Constance Rosales - Last Filed: 07/12/18 08:10> - Plan Seen and examined with LOTTERY SALES CLERK, egd and CT scan abd/pelvis planned. Thank you The exam, history, and the medical decision-making described in the above note were completed with the assistance of the mid-level provider. I reviewed and agree with the findings presented. I attest that I had a [id number] encounter with the patient on the same day, and personally performed and documented my assessment and findings in the medical record. <Yovanny Magdaleno - Last Filed: 07/13/18 16:23>
--- NOTE | 2018-07-12 08:49 | P.PN ---
Subjective Interval history: Follow-up of patient with hep C, abdominal pain. Patient seen and examined. Patient says she still has significant right upper pain. She has been seen by GI earlier today who is planning for EGD in am. Patient is agreeable. She denies any nausea or vomiting. She is tolerating diet. She admits to using a combination of Motrin and alcohol to help kaitlynn the abdominal pain. Physical Exam Vital signs: Vital Signs 07/11/18 17:27 07/12/18 05:52 Temperature 97.8 F 97.8 F Pulse Rate 63 56 L Respiratory Rate 16 17 Blood Pressure 119/63 113/65 Pulse Oximetry 96 96 Narrative: GENERAL: Well-developed, well-nourished, obese female, INAD. Awake and alert. Appears comfortable lying in bed. SKIN: Warm and dry. HEENT: Atraumatic. Normocephalic. Pupils equal and round. No scleral icterus. No injection or drainage. No nasal bleeding or discharge. Mucous membranes pink and moist. NECK: Trachea midline. CARDIOVASCULAR: Regular rate and rhythm. RESPIRATORY: No accessory muscle use. Clear to auscultation. Breath sounds equal bilaterally. GASTROINTESTINAL: Abdomen obese soft, right upper abdominal tenderness, nondistended. Hepatic margins palpable and splenic margins not palpable. MUSCULOSKELETAL: Extremities without clubbing, cyanosis, or edema. No obvious deformities. NEUROLOGICAL: Awake and alert. No obvious cranial nerve deficits. Motor grossly within normal limits. Nonfocal. Normal speech. PSYCHIATRIC: Calm and cooperative Results - Labs CBC & Chem 7: 07/10/18 08:07 07/10/18 08:07 Assessment and Plan - Assessment (1) Hepatitis C Code(s): B19.20 - Unspecified viral hepatitis C without hepatic coma Status: Acute (2) MRSA (methicillin resistant staph aureus) culture positive Code(s): Z22.322 - Carrier or suspected carrier of Methicillin resistant Staphylococcus aureus Status: Acute (3) GERD (gastroesophageal reflux disease) Code(s): K21.9 - Gastro-esophageal reflux disease without esophagitis Status: Acute (4) Adjustment disorder with depressed mood Code(s): F43.21 - Adjustment disorder with depressed mood Status: Acute - Plan 57-year-old woman, with a past medical history significant for hep C, history of MRSA, partial thyroidectomy, history of incarcerations, with a past psychiatric history of depression, multiple psychiatric admissions, one previous suicide attempt years ago, who presented to the ED after walking and stated she was tired of living in the context of recent cocaine intoxication and endorsing suicide ideation which patient was admitted to the inpatient psychiatry unit for further evaluation and management. Right upper quadrant pain, constant, worse after meals History of hepatitis C, treated with Harvoni Hx of cholecystectomy GERD History of hiatal hernia abd US neg -GI following, appreciate assistance. CT abd/pelvis ordered/will follow up on results. EGD planned for tomorrow. -Protonix 40 mg p.o. -trial of Bentyl -monitor History of MRSA, not active. No signs and symptoms of infection Continue to monitor History of partial thyroidectomy -thyroid studies WNL Alcohol dependence CIWA protocol -counseling given/complete alcohol cessation recommended -continue ativan -monitor for withdrawal symptoms -Continue thiamine and folic acid daily Adjustment disorder with depressed mood Management by Psychiatric Team Tobacco abuse -Nicotine patch -Counseling done DVT prophylaxis -Patient is ambulatory Code Status: Full Discussed Condition With: patient, nursing staff
[2018-07-12] MEDS ORDERED: Diatrizoate Meglum/Diatrizoate Sod Liq 9 ML UDC PO ONE (11:45)
--- NOTE | 2018-07-12 12:57 | P.PNPSY ---
Subjective Remarks: Patient seen in her room with nurse Eugenio, chart reviewed, patient compliant medications. Patient is showing some increased affect somewhat more alert and focused with better eye contact. She is making calls related to finding a sober living facilities she states she will be getting a return call from him today. She denies suicidality homicidality voice or visions. For now continue treatment. We will discontinue all Ativan orders at this time Review of Systems All other systems reviewed negative except as stated in HPI Mental Status Examination Appearance: Appropriate Consciousness: Alert Orientation: Person, Place, Date/Time Motor Activity: Normal gait Speech: Unremarkable Language: Adequate Fund of Knowledge: Adequate Attention and Concentration: Adequate Memory: Impaired (Improving) Mood: Other (Euthymic to somewhat restricted) Affect: Other (Slight decreased range and intensity) Thought Process & Associations: Disorganized (Improving) Thought Content: Preoccupations (Wanting rehabilitation program) Hallucination Type: None Delusion Type: None Suicidal Ideation: No Suicidal Plan: No Suicidal Intention: No Homicidal Ideation: No Homicidal Plan: No Homicidal Intention: No Insight: Fair Judgment: Impulsive (Improving) Assessment and Plan - Assessment (1) Adjustment disorder with depressed mood Code(s): F43.21 - Adjustment disorder with depressed mood Status: Acute - Plan Plan: Patient's mood improving, now denying suicidality homicidality voice or visions. Continues to explore sober living facilities. Still will discharge within 24-48 hours Justification for Continued Inpatient Stay: At this time patient may decompensate if not placed in an appropriate level of care Discharge Planning: To be determined Request Healthcare Surrogate/Guardian Advocate?: No
--- NOTE | 2018-07-12 19:30 | CT ---
EXAM DATE: 07/12/2018 7:00 PM EDT AGE/SEX: 57 years / Female INDICATIONS: Abdomen pain CLINICAL DATA: This is the patient's initial encounter. Patient reports that signs and symptoms have been present for 1 day and indicates a pain score of 6/10. MEDICAL/SURGICAL HISTORY: Hepatitis C. None. ORAL CONTRAST: No oral contrast ingested. RADIATION DOSE: 15.87 CTDI (mGy) COMPARISON: No prior exams available for comparison. TECHNIQUE: Multiple contiguous axial images were obtained through the abdomen and pelvis following b olus infusion of 73 ml Omnipaque 350 (iohexol) nonionic water-soluble contrast as a single exam dos e. No oral contrast ingested. Using automated exposure control and adjustment of the mA and/or kV ac cording to patient size, radiation dose was kept as low as reasonably achievable to obtain optimal di agnostic quality images. DICOM format image data is available electronically for review and comparis on. FINDINGS: Lower Lungs: The visualized lower lungs are clear. Liver: The liver has a homogeneous density without space-occupying lesion. There is no dilation of th e biliary tree. The patient is status post cholecystectomy. Spleen: Homogeneous density without enlargement. Calcified granulomas are seen. Pancreas: Unremarkable without mass or calcification. Kidneys: Normal in size and shape. No evidence of mass or hydronephrosis. Adrenal Glands: Unremarkable. Aorta: The aorta and proximal iliac vessels are grossly unremarkable without aneurysmal dilation. Bowel/Mesentery: The stomach is mildly distended with debris. The small bowel and colon are unremark able. The appendix appears normal. It is filled with contrast. Abdominal Wall: Intact. Retroperitoneum: No evidence of adenopathy in the retrocrural, para-aortic, or deep pelvic regions. Bladder: Contours are smooth. Reproductive Organs: No abnormal masses or calcifications seen. Inguinal: The inguinal region is unremarkable without evidence of adenopathy. Bony Structures: Degenerative change and postoperative change seen in the lower lumbar spine. Surgic al hardware is present. There is grade 1 anterior spondylolisthesis of L4 on L5. CONCLUSION: 1. No definite acute abnormality is seen. 2. Nonspecific mild distention of the stomach with debris. This can be correlated if this is related to the clinical symptoms. 3. Degenerative and postoperative change in the lower lumbar spine. Electronically signed by: Lexa Diaz MD 07/12/2018 7:29 PM EDT
[2018-07-12] MEDS: REMOVE OTHER SCH (21:21)
[2018-07-12 23:53] LABS: CK-MB 0 (<5); CK-MM 100 (95-100)
[2018-07-13] MEDS ORDERED: Lidocaine PF 1% Inj 5 ML Syringe OTHER ONE (09:19)
--- NOTE | 2018-07-13 09:36 | GIPROC ---
[facility] [address] [facility]. [facility] [address] [facility], [address] EGD PROCEDURE REPORT EXAM DATE: 07/13/2018 PATIENT NAME: Ena Gonzales MR #: [id number] BIRTHDATE: 1960 ATTENDING: Yovanny Magdaleno MD ORDER #: [id number] GLOBAL PROGRAM MANAGER: Promise Westfall Pena, Gabriela, and Babita Starr STATUS: inpatient INDICATIONS: The patient is a 57 yr old female here for an EGD due to abdominal pain in the right upper quadrant PROCEDURE PERFORMED: EGD w/ biopsy MEDICATIONS: None and Per Anesthesia. TOPICAL ANESTHETIC: CONSENT: The patient understands the risks and benefits of the procedure and understands that these risks include, but are not limited to: sedation, allergic reaction, infection, perforation and/or bleeding. Alternative means of evaluation and treatment include, among others: physical exam, x-rays, and/or surgical intervention. The patient elects to proceed with this endoscopic procedure. medical equipment was checked for proper function. Hand hygiene and appropriate measures for infection prevention was taken. After the risks, benefits and alternatives of the procedure were thoroughly explained, Informed consent was verified, confirmed and timeout was successfully executed by the treatment team. The patient was anesthetized with topical anesthesia and the EC-[id number] (Pedi C) endoscope was introduced through the mouth and advanced to the second portion of the duodenum. Retroflexed views revealed no abnormalities The gastroscope was then slowly withdrawn and removed. ESOPHAGUS: There was LA Class A esophagitis noted. A biopsy was performed using cold forceps. Sample sent for histology. STOMACH: There was erythematous moderate gastritis in the gastric antrum. A biopsy was performed using cold forceps. Sample sent for histology. DUODENUM: The duodenal mucosa appeared normal in the bulb and second portion of the duodenum. ADVERSE EVENTS: There were no complications. IMPRESSIONS: 1. There was LA Class A esophagitis noted; biopsy was performed 2. There was erythematous gastritis in the gastric antrum; biopsy was performed 3. Normal duodenal mucosa in the bulb and second portion of the duodenum 4. Retroflexed views revealed no abnormalities RECOMMENDATIONS: 1. Await biopsy results. Biopsy results will not be ready for 7-10 days. If you don't hear from us in two weeks, call our office for biopsy results. 2. Anti-reflux regimen 3. Continue PPI 4. Avoid NSAIDS PATIENT CONDITION: stable DISPOSITION: Inpatient REPEAT EXAM: Return 1 year EGD pending biopsy results Yovanny Magdaleno MD eSigned: Yovanny Magdaleno MD 07/13/2018 9:35 AM cc: PATIENT NAME: Ena Gonzales MR#: [id number]
[2018-07-13] MEDS: Folic Acid 1 MG Tablet PO SCH (10:08)
[2018-07-13] MEDS: Acetaminophen 325 MG Tablet PO PRN ×2 (10:09→22:05)
--- NOTE | 2018-07-13 12:36 | ECG ---
Date Performed: 07/13/2018 Time Performed: 08:54:36 PTAGE: 57 years EKG: SINUS BRADYCARDIA POSSIBLE LEFT ANTERIOR FASCICULAR BLOCK SEPTAL MYOCARDIAL INFARCTION , OF INDETERMINATE AGE ABNORMAL ECG NO PREVIOUS TRACING DOCTOR: Alessandro Alvarado Interpretating Date/Time 07/13/2018 12:33:17
--- NOTE | 2018-07-13 13:43 | P.PNPSY ---
Subjective Remarks: Patient seen and reardon with nurse Ramirez, chart reviewed, patient compliant medication. Patient continues to show increased alertness and focus and processing. She continues to voice desire to maintain sobriety. She is willing to travel towards [place] to look at sober living facilities also. Patient denies suicidality voices or visions. For now continue treatment consider discharge tomorrow Review of Systems All other systems reviewed negative except as stated in HPI Mental Status Examination Appearance: Appropriate Consciousness: Alert Orientation: Person, Place, Date/Time Motor Activity: Normal gait Speech: Unremarkable Language: Adequate Fund of Knowledge: Adequate Attention and Concentration: Adequate Memory: Impaired (Improving) Mood: Other (Euthymic to somewhat restricted) Affect: Other (Slight decreased range and intensity) Thought Process & Associations: Disorganized (Improving) Thought Content: Preoccupations (Wanting rehabilitation program) Hallucination Type: None Delusion Type: None Suicidal Ideation: No Suicidal Plan: No Suicidal Intention: No Homicidal Ideation: No Homicidal Plan: No Homicidal Intention: No Insight: Fair Judgment: Impulsive (Improving) Assessment and Plan - Assessment (1) Adjustment disorder with depressed mood Code(s): F43.21 - Adjustment disorder with depressed mood Status: Acute - Plan Plan: Patient mood continues to resolve she is showing increased focus cooperation and affect. Patient continues to be worked up by GI Justification for Continued Inpatient Stay: At this time patient would decompensate a place to a lower level of care Discharge Planning: To be determined Request Healthcare Surrogate/Guardian Advocate?: No
--- NOTE | 2018-07-13 14:35 | P.PN ---
Subjective Interval history: Follow-up of patient with hep C, abdominal pain. Patient seen and examined. Patient s/p EGD revealing class a esophagitis and moderate gastritis. Discussed findings with patient. Recommended complete avoidance of alcohol, aspirin and NSAIDs. Recommended patient continue on a proton pump inhibitor. Patient will need to follow-up in 1 year for repeat EGD pending biopsy results. All questions were addressed and answered with patient. Physical Exam Vital signs: Vital Signs 07/12/18 18:00 07/13/18 05:19 07/13/18 09:46 Temperature 97.9 F 97.6 F 98.0 F Pulse Rate 68 58 L 57 L Respiratory Rate 17 16 16 Blood Pressure 149/82 H 106/61 109/55 L Pulse Oximetry 96 96 Intake & Output 07/12/18 07/13/18 07/13/18 18:59 06:59 18:59 Intake Total 960 / 960 200 / 200 Balance 960 / 960 200 / 200 Weight 83.7 kg Intake: Oral 960 / 960 Anesthesia Amount 200 / 200 Narrative: GENERAL: Well-developed, well-nourished, obese female, INAD. Awake and alert. Ambulating in the unit. SKIN: Warm and dry. HEENT: Atraumatic. Normocephalic. Pupils equal and round. No scleral icterus. No injection or drainage. No nasal bleeding or discharge. Mucous membranes pink and moist. NECK: Trachea midline. CARDIOVASCULAR: Regular rate and rhythm. RESPIRATORY: No accessory muscle use. Clear to auscultation. Breath sounds equal bilaterally. GASTROINTESTINAL: Abdomen obese soft, right upper abdominal tenderness, nondistended. Hepatic margins palpable and splenic margins not palpable. MUSCULOSKELETAL: Extremities without clubbing, cyanosis, or edema. No obvious deformities. NEUROLOGICAL: Awake and alert. No obvious cranial nerve deficits. Motor grossly within normal limits. Nonfocal. Normal speech. PSYCHIATRIC: Calm and cooperative Results - Labs CBC & Chem 7: 07/10/18 08:07 07/10/18 08:07 Laboratory Results - last 24 hr 07/10/18 08:07 CK-MM (CK-3) % 100 CK-MB (CK-2) % 0 CK-BB (CK-1) % None detected CK and CKMB Interp ND - Imaging Impressions Abdomen/Pelvis CT 07/12/18 00:00 CONCLUSION: 1. No definite acute abnormality is seen. 2. Nonspecific mild distention of the stomach with debris. This can be correlated if this is related to the clinical symptoms. 3. Degenerative and postoperative change in the lower lumbar spine. - Procedures [place], [place] [facility] Procedure Report [facility] [address] [facility], [address] EGD PROCEDURE REPORT EXAM DATE: 07/13/2018 PATIENT NAME: Ena Gonzales MR #: [id number] BIRTHDATE: 1960 ATTENDING: Yovanny Magdaleno MD ORDER #: [id number] EDITOR PUBLICATIONS: Promise Westfall Pena, Gabriela, and aBbita Starr STATUS: inpatient INDICATIONS: The patient is a 57 yr old female here for an EGD due to abdominal pain in the right upper quadrant PROCEDURE PERFORMED: EGD w/ biopsy MEDICATIONS: None and Per Anesthesia. TOPICAL ANESTHETIC: CONSENT: The patient understands the risks and benefits of the procedure and understands that these risks include, but are not limited to: sedation, allergic reaction, infection, perforation and/or bleeding. Alternative means of evaluation and treatment include, among others: physical exam, x-rays, and/or surgical intervention. The patient elects to proceed with this endoscopic procedure. medical equipment was checked for proper function. Hand hygiene and appropriate measures for infection prevention was taken. After the risks, benefits and alternatives of the procedure were thoroughly explained, Informed consent was verified, confirmed and timeout was successfully executed by the treatment team. The patient was anesthetized with topical anesthesia and the EC-3490Li (Pedi C) endoscope was introduced through the mouth and advanced to the second portion of the duodenum. Retroflexed views revealed no abnormalities The gastroscope was then slowly withdrawn and removed. ESOPHAGUS: There was LA Class A esophagitis noted. A biopsy was performed using cold forceps. Sample sent for histology. STOMACH: There was erythematous moderate gastritis in the gastric antrum. A biopsy was performed using cold forceps. Sample sent for histology. DUODENUM: The duodenal mucosa appeared normal in the bulb and second portion of the duodenum. ADVERSE EVENTS: There were no complications. IMPRESSIONS: 1. There was LA Class A esophagitis noted; biopsy was performed 2. There was erythematous gastritis in the gastric antrum; biopsy was performed 3. Normal duodenal mucosa in the bulb and second portion of the duodenum 4. Retroflexed views revealed no abnormalities RECOMMENDATIONS: 1. Await biopsy results. Biopsy results will not be ready for 7-10 days. If you don't hear from us in two weeks, call our office for biopsy results. 2. Anti-reflux regimen 3. Continue PPI 4. Avoid NSAIDS PATIENT CONDITION: stable DISPOSITION: Inpatient REPEAT EXAM: Return 1 year EGD pending biopsy results Yovanny Magdaleno MD eSigned: Yovanny Magdaleno MD 07/13/2018 9:35 AM Assessment and Plan - Assessment (1) Hepatitis C Code(s): B19.20 - Unspecified viral hepatitis C without hepatic coma Status: Acute (2) MRSA (methicillin resistant staph aureus) culture positive Code(s): Z22.322 - Carrier or suspected carrier of Methicillin resistant Staphylococcus aureus Status: Acute (3) GERD (gastroesophageal reflux disease) Code(s): K21.9 - Gastro-esophageal reflux disease without esophagitis Status: Acute (4) Adjustment disorder with depressed mood Code(s): F43.21 - Adjustment disorder with depressed mood Status: Acute - Plan 57-year-old woman, with a past medical history significant for hep C, history of MRSA, partial thyroidectomy, history of incarcerations, with a past psychiatric history of depression, multiple psychiatric admissions, one previous suicide attempt years ago, who presented to the ED after walking and stated she was tired of living in the context of recent cocaine intoxication and endorsing suicide ideation which patient was admitted to the inpatient psychiatry unit for further evaluation and management. Right upper quadrant pain, constant, worse after meals History of hepatitis C, treated with Harvoni Hx of cholecystectomy GERD History of hiatal hernia abd US neg CT abd/pelvis reveals no acute abnormality, mild distention of the stomach with debris. -GI following, appreciate assistance. s/p EGD revealing esophagitis and moderate gastritis. Recommend complete alcohol cessation and tobacco cessation. Avoidance of aspirin and NSAIDs. Continue on PPI. Patient will need to follow-up with GI as outpatient for biopsy results. -Protonix 40 mg p.o. -trial of Bentyl -monitor History of MRSA, not active. No signs and symptoms of infection Continue to monitor History of partial thyroidectomy -thyroid studies WNL Alcohol dependence CIMO protocol -counseling given/complete alcohol cessation recommended -continue ativan -monitor for withdrawal symptoms -Continue thiamine and folic acid daily Adjustment disorder with depressed mood Management by Psychiatric Team Tobacco abuse -Nicotine patch -Counseling done DVT prophylaxis -Patient is ambulatory Patient appears stable from hospitalist standpoint. [facility] will sign off. Please reconsult if needed. Code Status: Full Discussed Condition With: patient, nursing staff
--- NOTE | 2018-07-13 15:22 | P.TTN ---
- Patient Problems Problems: 1. Discharge planning 2. Medication compliance 3. Knowledge deficit 4. Lack of coping skills - Progress Toward Goals Provider Present: Dr. Manuel Harrington, Dr. Janett San Provider Input: Pt has hx of homelessness, expectation is short-term psych, stabilization, discharge. Psychiatric Counselors Present: Scott Vargas Jr., [facility], [place], Zeinab Pruitt, [facility] Group Spec/RT/OT/GARCIA Present: Valeria Zelaya, GPS, Hudson Mc, OT Group Spec/RT/OT/GARCIA Input: Pt has attended groups intermittently. Additional Input: Pt is expected to be stabilized and discharged in short-term. - Discharge Plan SMA - Documentation Teaching Recipient: Patient
[2018-07-13] MEDS: REMOVE OTHER SCH (21:20)
[2018-07-14] MEDS: Folic Acid 1 MG Tablet PO SCH (09:24)
--- NOTE | 2018-07-14 11:31 | P.PNGI ---
Subjective Interval history: Patient resting in bed. States that she is having some mild abdominal discomfort but is overall improved. She denies any nausea or vomiting. She states that she is tolerating p.o. well. Had a small bowel movement earlier today. <Constance Rosales - Last Filed: 07/14/18 11:28> Physical Exam Vital signs: Vital Signs 07/14/18 06:00 Temperature 97.5 F L Pulse Rate 52 L Respiratory Rate 16 Blood Pressure 110/59 L Pulse Oximetry 97 Intake & Output 07/13/18 07/14/18 07/14/18 18:59 06:59 18:59 Intake Total 200 / 200 240 / 240 Balance 200 / 200 240 / 240 Intake: Oral 240 / 240 Anesthesia Amount 200 / 200 - Constitutional no acute distress - Routine HEENT Exam Head: Present: normocephalic, atraumatic - Routine Respiratory Exam Absent: accessory muscle use - Routine Abdominal Exam Present: soft, normoactive bowel sounds. Absent: tenderness, distended - Routine Skin Exam Present: dry, warm - Routine Neurological Exam Present: alert, oriented X3 <Constance Rosales - Last Filed: 07/14/18 11:28> Vital signs: Vital Signs 07/14/18 06:00 Temperature 97.5 F L Pulse Rate 52 L Respiratory Rate 16 Blood Pressure 110/59 L Pulse Oximetry 97 Intake & Output 07/13/18 07/14/18 07/14/18 18:59 06:59 18:59 Intake Total 200 / 200 240 / 240 Balance 200 / 200 240 / 240 Intake: Oral 240 / 240 Anesthesia Amount 200 / 200 <Yovanny Magdaleno - Last Filed: 07/14/18 13:25> Results - Labs CBC & Chem 7: 07/10/18 08:07 07/10/18 08:07 - Procedures [place], [place] [facility] Procedure Report [facility] [address] [facility]. [facility], [address] EGD PROCEDURE REPORT EXAM DATE: 07/13/2018 PATIENT NAME: Ena Gonzales MR #: [id number] BIRTHDATE: 1960 ATTENDING: Yovanny Magdaleno MD ORDER #: [id number] SHINGLE CATCHER: Promise Westfall Pena, Gabriela, and Babita Starr STATUS: inpatient INDICATIONS: The patient is a 57 yr old female here for an EGD due to abdominal pain in the right upper quadrant PROCEDURE PERFORMED: EGD w/ biopsy MEDICATIONS: None and Per Anesthesia. TOPICAL ANESTHETIC: CONSENT: The patient understands the risks and benefits of the procedure and understands that these risks include, but are not limited to: sedation, allergic reaction, infection, perforation and/or bleeding. Alternative means of evaluation and treatment include, among others: physical exam, x-rays, and/or surgical intervention. The patient elects to proceed with this endoscopic procedure. medical equipment was checked for proper function. Hand hygiene and appropriate measures for infection prevention was taken. After the risks, benefits and alternatives of the procedure were thoroughly explained, Informed consent was verified, confirmed and timeout was successfully executed by the treatment team. The patient was anesthetized with topical anesthesia and the EC-3490Li (Pedi C) endoscope was introduced through the mouth and advanced to the second portion of the duodenum. Retroflexed views revealed no abnormalities The gastroscope was then slowly withdrawn and removed. ESOPHAGUS: There was LA Class A esophagitis noted. A biopsy was performed using cold forceps. Sample sent for histology. STOMACH: There was erythematous moderate gastritis in the gastric antrum. A biopsy was performed using cold forceps. Sample sent for histology. DUODENUM: The duodenal mucosa appeared normal in the bulb and second portion of the duodenum. ADVERSE EVENTS: There were no complications. IMPRESSIONS: 1. There was LA Class A esophagitis noted; biopsy was performed 2. There was erythematous gastritis in the gastric antrum; biopsy was performed 3. Normal duodenal mucosa in the bulb and second portion of the duodenum 4. Retroflexed views revealed no abnormalities RECOMMENDATIONS: 1. Await biopsy results. Biopsy results will not be ready for 7-10 days. If you don't hear from us in two weeks, call our office for biopsy results. 2. Anti-reflux regimen 3. Continue PPI 4. Avoid NSAIDS PATIENT CONDITION: stable DISPOSITION: Inpatient REPEAT EXAM: Return 1 year EGD pending biopsy results Yovanny Magdaleno MD eSigned: Yovanny Magdaleno MD 07/13/2018 9:35 AM <Constance Rosales - Last Filed: 07/14/18 11:28> - Labs CBC & Chem 7: 07/10/18 08:07 07/10/18 08:07 <Yovanny Magdaleno - Last Filed: 07/14/18 13:25> Assessment and Plan - Plan Assessment Right upper quadrant abdominal painstates is been going on for the past year but increasing in intensity, constant throughout the day but worse after meals. Unable to describe the pain. Reports associated nausea when the pain is severe, occasional emesis. Denies hematemesis and coffee-ground emesis. Of note, patient reports she has been taking a lot of ibuprofen lately for the abdominal pain. Also drinks 1-2 pints of whiskey daily. Liver ultrasound (07/10)-post cholecystectomy. Negative abdominal sonogram Mid lower abdominal painstates been going on for the past month, intermittent. Describes it as a feeling of something inside of her rolling. Denies any changes in bowel habits. Denies any hematochezia or melena. Denies any recent unintentional weight loss. Patient reports having an EGD and colonoscopy done a year ago, findings of one colon polyp and hiatal hernia. Patient does report a narrowing in her colon multiple years ago and a colonoscopy but this is not recurred on previous exam. Does report family history significant for colon cancer, father. Hepatitis Cpatient reports history of hepatitis C from history of IV drug use status post successful treatment with Harvoni in 2014. Patient does report recent illicit drug use but states no IV use since treatment. EtOH abusepatient reports drinking 1-2 pints of whiskey daily. Suicidal ideation- Currently admitted to inpatient psych unit CT abdomen/pelvis with IV contrast--> no definite acute abnormality is seen. Nonspecific mild distention of the stomach with debris. EGD (07/13/2018) class a esophagitis noted. Reproduce gastritis in the gastric antrum. Normal duodenal mucosa in the bulb and second portion of the duodenum. (07/14) patient reports some mild abdominal discomfort but states overall the pain is improving. Denies any nausea, vomiting, abdominal pain. Had a small BM this morning. She is tolerating p.o. Plan EGD biopsy pending Protonix Avoid NSAIDs Repeat EGD in 1 year Our service will sign off, please reconsult as needed Have patient follow-up with GI after discharge <Constance Rosales - Last Filed: 07/14/18 11:28> - Plan Over all feeling better. S/p egd and CT abd/pelvis. Protonix daily. Await biopsies. GI will sign off, reconsult as needed. Thank you <Yovanny Magdaleno - Last Filed: 07/14/18 13:25>
--- NOTE | 2018-07-14 12:20 | P.DSPSY ---
Psychiatry Discharge Summary Inpatient Psychiatric care?: Yes Advance Directives: No Mental Health Advance Directive: No Health Care Proxy: No - Admission Admission Date: July 08, 2018 04:13 - Admission Diagnosis (1) Adjustment disorder with depressed mood Code(s): F43.21 - Adjustment disorder with depressed mood Brief History: Patient is a 57-year-old woman, , has 2 children, currently homeless, unemployed on Social Security disability, history of incarcerations, with a past psychiatric history of depression, multiple psychiatric admissions, one previous suicide attempt years ago, with a past medical history significant for hep C, history of MRSA, partial thyroidectomy, who presented to the ED after walking and stated she was tired of living in the context of recent cocaine intoxication and endorsing suicide ideation which patient was admitted to the inpatient psychiatry unit for further evaluation and management. Patient was found lying hospital bed noted B, cooperative, seen with nurse and counselor. Patient states that she had been drinking all the time referring to alcohol use, having disturbed sleep, decreased energy with no change in appetite and concentration but reports feeling depressed along with paranoid ideation and suicidal ideation recently. Patient states that she had walked into the ER in [place] and was transferred here to this facility. Patient noted be somewhat disorganized during interview continues report feeling depressed continues to endorse having suicidal ideation but denying any perceptional disturbances. Family psychiatric history: 2 children with bipolar disorder, no suicides in the family Past psychiatric history: Previous psychiatric diagnoses of depression, multiple psychiatric admissions, reports 1 previous suicide attempt years ago, denies any self-injurious behavior, reports history of ECT treatment, no outpatient mental health provider, reports previously being on Cymbalta 30 mg daily for depression. Past medical history: Hep C, history of MRSA, partial thyroidectomy, back surgery Allergies: Haldol, penicillin, sulfas Substance use history: Alcohol daily usually 1-2 pints per day, reports prior rehab or detox programs, reports marijuana use recently and remote history of IV drug use in the 80s also including use of meth, cocaine and heroin. Patient endorses recent cocaine use. Social history: , 3 children, homeless, reports coming from [place], unemployed on Social Security disability, reports history of incarcerations for various crimes. Patient reports recently released from group home in June in [place]. Tobacco Use In Past 30 Days: Yes How Often Do You Have a Drink Containing Alcohol: 4 or more times a week Hospital Course: Patient's hospital course was uneventful, there is initial irritability and anger related to her living situation in the process of getting to this hospital. However she showed compliance of the medication. Becoming more involved in the milieu. She has made efforts at finding a sober living a placement facilities. She is willing to go to [place]. She states she is also talked to her son who lives in [place] is also willing to have her come and stay with her. Thus patient will be discharged today. She denies suicidality homicidality voices or visions. Counselor will work with patient to get transportation up to [facility]. Discussed possibilities to help her get [place] - Discharge Discharge Date: 07/14/18 - Discharge Diagnosis (1) Adjustment disorder with depressed mood Code(s): F43.21 - Adjustment disorder with depressed mood Status: Acute Discharge Disposition: Home - Discharge Instructions Discharge Diet: Regular Diet Activities You Can Perform: Regular- No Restrictions - Discharge Time > 30 minutes Mental Status Examination Appearance: Appropriate Consciousness: Alert Orientation: Person, Place, Date/Time Motor Activity: Normal gait Speech: Unremarkable Language: Adequate Fund of Knowledge: Adequate Attention and Concentration: Adequate Memory: Impaired (Improving) Mood: Other (Euthymic to somewhat restricted) Affect: Other (Slight decreased range and intensity) Thought Process & Associations: Disorganized (Improving) Thought Content: Preoccupations (Wanting rehabilitation program) Hallucination Type: None Delusion Type: None Suicidal Ideation: No Suicidal Plan: No Suicidal Intention: No Homicidal Ideation: No Homicidal Plan: No Homicidal Intention: No Insight: Fair Judgment: Impulsive (Improving) Discharge/Advance Care Plan - Results Vital Signs: Last Vital Signs Temp 97.5 F L 07/14/18 06:00 Pulse 52 L 07/14/18 06:00 Resp 16 07/14/18 06:00 BP 110/59 L 07/14/18 06:00 Pulse Ox 97 07/14/18 06:00 Lab Results: Laboratory Results TSH 0.610 uIU/mL (0.358-3.740) 07/09/18 09:00 Free T4 0.99 ng/dL (0.76-1.46) 07/09/18 09:00 Urine Culture Comments Culture not ind 07/09/18 13:35 Summary of Procedures: Various GI procedures done please see medical record Imaging: ITS Impressions Liver Ultrasound 07/10/18 00:00 CONCLUSION: 1. Negative abdominal sonogram. Cholecystectomy. Abdomen/Pelvis CT 07/12/18 00:00 CONCLUSION: 1. No definite acute abnormality is seen. 2. Nonspecific mild distention of the stomach with debris. This can be correlated if this is related to the clinical symptoms. 3. Degenerative and postoperative change in the lower lumbar spine. Pending Results: None - Medications Number of antipsychotic medications at discharge: 0 - Discharge Care Plan Goals to Promote Your Health: * To prevent worsening of your condition and complications * To maintain your health at the optimal level Directions to Meet Your Goals: Take your medications as prescribed Follow your dietary instruction Follow activity as directed Keep your appointments as scheduled Take your immunizations and boosters as scheduled If your symptoms worsen call your PCP, if no PCP go to Urgent Care Center or Emergency Room For 25/04 questions related to your inpatient stay or results of tests pending at discharge, please contact Dr. Lxea Harrington MD at Smoking is Dangerous to Your Health. Avoid second hand smoking
[2018-07-14] MEDS: REMOVE OTHER SCH (20:44)
[2018-07-15] MEDS: Folic Acid 1 MG Tablet PO SCH (08:10)
--- NOTE | 2018-07-15 15:17 | P.PNPSY ---
Subjective Remarks: Reviewed electronic medical records and discussed case with staff. Follow-up was conducted in the patient's room with BRENDEN Diaz present. Her nurse reports that she has been compliant with medications and had no behavioral disturbances. This patient is to be discharged tomorrow. States that she is feeling okay though somewhat "restless". States that her sleep was less than satisfactory. Reports that she has had a good appetite. Denies any side effects from medication. Mental Status Examination Appearance: Appropriate Consciousness: Alert Orientation: Person, Place, Date/Time Motor Activity: Normal gait Speech: Unremarkable Language: Adequate Fund of Knowledge: Adequate Attention and Concentration: Adequate Memory: Impaired (Improving) Mood: Other (Euthymic to somewhat restricted) Affect: Other (Slight decreased range and intensity) Thought Process & Associations: Disorganized (Improving) Thought Content: Preoccupations (Wanting rehabilitation program) Hallucination Type: None Delusion Type: None Suicidal Ideation: No Suicidal Plan: No Suicidal Intention: No Homicidal Ideation: No Homicidal Plan: No Homicidal Intention: No Insight: Fair Judgment: Impulsive (Improving) Assessment and Plan - Assessment (1) Adjustment disorder with depressed mood Code(s): F43.21 - Adjustment disorder with depressed mood Status: Acute - Plan Plan: Patient will be reevaluated Tuesday by the attending psychiatrist. Continue with current treatment plan. Justification for Continued Inpatient Stay: Moving this patient to a less restrictive environment would likely result in decompensation. Request Healthcare Surrogate/Guardian Advocate?: No
[2018-07-15] MEDS: REMOVE OTHER SCH (21:19)
[2018-07-16 05:43] VITALS: BP 92/52; PULSE 51; RESP 18; TEMP 97.9; O2SAT 98
[2018-07-16] MEDS: Folic Acid 1 MG Tablet PO SCH (08:19)
[2018-07-16] MEDS: Acetaminophen 325 MG Tablet PO PRN (08:19)
--- NOTE | 2018-07-16 11:05 | P.PNPSY ---
Subjective Remarks: Reviewed electronic medical records and discussed case with staff. Follow-up was conducted in patient's room with BRENDEN Murcia. Patient will be leaving today. Arrangement have been made to provide her a taxi to the bus station and she has a ticket to take [employer] to [place]. Her brother will be meeting her when she arrives in [place]. She has prescriptions and she has a plan to connect with services in [place]. Patient is cooperative, but nervous about her trip. Review of Systems All other systems reviewed negative except as stated in HPI Mental Status Examination Appearance: Appropriate Consciousness: Alert Orientation: Person, Place, Date/Time Motor Activity: Normal gait Speech: Unremarkable Language: Adequate Fund of Knowledge: Adequate Attention and Concentration: Adequate Memory: Impaired (Improving) Mood: Other (Euthymic to somewhat restricted) Affect: Appropriate Thought Process & Associations: Intact Thought Content: Preoccupations (traveling to [place] today ) Hallucination Type: None Delusion Type: None Suicidal Ideation: No Suicidal Plan: No Suicidal Intention: No Homicidal Ideation: No Homicidal Plan: No Homicidal Intention: No Insight: Adequate Judgment: Adequate (Improving) Assessment and Plan - Assessment (1) Adjustment disorder with depressed mood Code(s): F43.21 - Adjustment disorder with depressed mood Status: Acute - Plan Plan: Patient leaving today has transportation to [place] and her brother will meet her. She has prescription and will connect with services in [place]. Justification for Continued Inpatient Stay: Patient discharge today at 1400. Request Healthcare Surrogate/Guardian Advocate?: No
== END 2018-07-16 13:30 | disposition home or self-care (01) ==
LOC: H260 04:13
PROVIDERS: ADMIT Psychiatry & Neurology Psychiatry; ATTEND Psychiatry & Neurology Psychiatry
PROC: PANENDO (2018-07-13 09:20)